=== PATIENT | female | born 1990 | race Caucasian/White ===

== ENCOUNTER 2019-07-23 08:33 | Emergency (ER) | payer SELFPAY ==
[~2019-07-23] VITALS: Ht 160.2 cm; Wt 95.8 kg
[~2019-07-23 08:33] MED LIST: ACHD5005 PO; CEFD300C3 PO; FAMO20TA5 PO; HYDR25CA92 PO; KETO-22 PO; LACT20SO2 PO; LD2JL30 EXT; NITR100C3 PO; ONDA-43 PO; POLY119P PO; PRED20TA PO; PROCTOSOL-HC TOP; SENN1TAB66 PO; TRAM50TA2 PO
[2019-07-23] MEDS ORDERED: LACTATED RINGERS 1,000 ML IV ONE (10:32)
[2019-07-23] MEDS ORDERED: FAMOTIDINE 20 MG (PEPCID) TABLET PO STA (10:32)
--- NOTE | 2019-07-23 10:42 | ED Abdominal Pain ---
General Chief Complaint: Abdominal/GI Problems Stated Complaint: VOMITING / ABD PAIN Nursing Triage Note: symptoms started yesterday am . stomach pain followed by nausea and vomitinng. weakness and chills Sepsis Screen: No Definite Risk Source of Information: Patient, Family Exam Limitations: No Limitations History of Present Illness Date Seen by Provider: Jul 23, 2019 Time Seen by Provider: 10:15 Initial Comments Patient present to ER by private conveyance with her significant other chief complaint that she's having some epigastric abdominal pain nausea and vomiting since yesterday. The day before she ate [employer] with her dad and he also has similar gastric symptoms. She had a bowel movement 2 days ago after eating [employer] which was normal, formed. She's not having any diarrhea. She's not having any fevers or chills. No history of abdominal surgeries or trauma. No significant medical history. She has not seen anybody for this yet. No history of pancreatitis, biliary colic. Allergies and Home Medications Allergies Coded Allergies: No Known Drug Allergies (Unverified , 07/19/10) Home Medications Cefdinir 300 Mg Capsule, 1 EACH PO BID Prescribed by: PATRICK ROSARIO on 12/03/141920 Famotidine 20 Mg Tablet, 1 EACH PO BID Prescribed by: PATRICK ROSARIO on 12/03/141920 Hydroxyzine Pamoate 25 Mg Capsule, 1 EA PO QID PRN for ANXIETY FOR ITCHING Prescribed by: PATRICK ROSARIO on 12/03/141921 Prednisone 20 Mg Tablet, 40 MG PO DAILY Prescribed by: PATRICK ROSARIO on 12/03/141920 Tramadol Hcl 50 Mg Tablet, 50 MG PO Q4H PRN for PAIN Prescribed by: PATRICK ROSARIO on 12/03/141920 Patient Home Medication List Home Medication List Reviewed: Yes Review of Systems Review of Systems Constitutional: No chills, No diaphoresis EENTM: No Blurred Vision, No Double Vision Respiratory: Denies Cough, Denies Shortness of Air Cardiovascular: Denies Chest Pain, Denies Lightheadedness Gastrointestinal: Abdominal Pain; Denies Constipated, Denies Diarrhea; Nausea, Poor Fluid Intake Genitourinary: Denies Burning, Denies Discharge Musculoskeletal: No back pain, No joint pain All Other Systems Reviewed Negative Unless Noted: Yes Past Nzdjuek-Vhvqhi-Rlgqxs Hx Patient Social History Alcohol Use: Denies Use Recreational Drug Use: No Smoking Status: Never a Smoker Recent Foreign Travel: No Contact w/Someone Who Travel: No Recent Infectious Disease Expo: No Past Medical History : No Reproductive Disorders: No Hemorrhoids Family Medical History No Pertinent Family Hx Physical Exam Vital Signs Vital Signs - First Documented 07/23/19 10:19 Temp 37.3 Pulse 97 Resp 20 B/P (MAP) 117/84 (95) Pulse Ox 99 O2 Delivery Room Air Capillary Refill : Less Than 3 Seconds Height/Weight/BMI Height: 5'3" Weight: 150lbs. oz. 68.552603ol; 37.00 BMI Method:Stated General Appearance: WD/WN, no apparent distress HEENT: PERRL/EOMI, normal ENT inspection, TMs normal; No pharynx normal (oropharynx mildly dry) Neck: full range of motion, normal inspection Respiratory: lungs clear, normal breath sounds, no respiratory distress, no accessory muscle use Cardiovascular: normal peripheral pulses, regular rate, rhythm Peripheral Pulses: 2+ Radial Pulses (R), 2+ Radial Pulses (L) Gastrointestinal: normal bowel sounds, soft, no organomegaly, tenderness (mild epigastric tenderness. Negative for Kelly sign, Rovsing sign or rebound tenderness over McBurney's point.) Extremities: normal range of motion, normal inspection, normal capillary refill Neurologic/Psychiatric: alert, normal mood/affect, oriented x 3 Skin: normal color, warm/dry Progress/Results/Core Measures Results/Orders Lab Results Laboratory Tests Test 07/23/19 10:39 07/23/19 10:40 Range/Units White Blood Count 7.8 4.3-11.0 10^3/uL Red Blood Count 5.31 4.35-5.85 10^6/uL Hemoglobin 13.8 11.5-16.0 G/DL Hematocrit 41 35-52 % Mean Corpuscular Volume 77 L 80-99 FL Mean Corpuscular Hemoglobin 26 25-34 PG Mean Corpuscular Hemoglobin Concent 34 32-36 G/DL Red Cell Distribution Width 13.8 10.0-14.5 % Platelet Count 232 130-400 10^3/uL Mean Platelet Volume 11.5 H 7.4-10.4 FL Neutrophils (%) (Auto) 77 H 42-75 % Lymphocytes (%) (Auto) 14 12-44 % Monocytes (%) (Auto) 9 0-12 % Eosinophils (%) (Auto) 1 0-10 % Basophils (%) (Auto) 0 0-10 % Neutrophils # (Auto) 6.0 1.8-7.8 X 10^3 Lymphocytes # (Auto) 1.1 1.0-4.0 X 10^3 Monocytes # (Auto) 0.7 0.0-1.0 X 10^3 Eosinophils # (Auto) 0.1 0.0-0.3 10^3/uL Basophils # (Auto) 0.0 0.0-0.1 10^3/uL Sodium Level 139 135-145 MMOL/L Potassium Level 3.8 3.6-5.0 MMOL/L Chloride Level 108 H 98-107 MMOL/L Carbon Dioxide Level 21 21-32 MMOL/L Anion Gap 10 5-14 MMOL/L Blood Urea Nitrogen 7 7-18 MG/DL Creatinine 0.73 0.60-1.30 MG/DL Estimat Glomerular Filtration Rate > 60 BUN/Creatinine Ratio 10 Glucose Level 86 70-105 MG/DL Calcium Level 8.7 8.5-10.1 MG/DL Corrected Calcium 8.5 8.5-10.1 MG/DL Total Bilirubin 0.4 0.1-1.0 MG/DL Aspartate Amino Transf (AST/SGOT) 18 5-34 U/L Alanine Aminotransferase (ALT/SGPT) 13 0-55 U/L Alkaline Phosphatase 84 40-136 U/L Total Protein 7.4 6.4-8.2 GM/DL Albumin 4.3 3.2-4.5 GM/DL Lipase 25 8-78 U/L Urine Color YELLOW Urine Clarity CLEAR Urine pH 6.5 5-9 Urine Specific [place]mond[place] 1.010 L 1.016-1.022 Urine Protein NEGATIVE NEGATIVE Urine Glucose (UA) NEGATIVE NEGATIVE Urine Ketones NEGATIVE NEGATIVE Urine Nitrite NEGATIVE NEGATIVE Urine Bilirubin NEGATIVE NEGATIVE Urine Urobilinogen 0.2 < = 1.0 MG/DL Urine Leukocyte Esterase TRACE NEGATIVE Urine RBC (Auto) TRACE-I NEGATIVE Urine RBC RARE /HPF Urine WBC RARE /HPF Urine Squamous Epithelial Cells 2-5 /HPF Urine Crystals NONE /LPF Urine Bacteria FEW H /HPF Urine Casts NONE /LPF Urine Mucus NEGATIVE /LPF Urine Culture Indicated NO My Orders Orders - HUSSAIN HAYES Ua Culture If Indicated (07/23/19 08:50) Urine Bedside (07/23/19 08:50) Ed Iv/Invasive Line Start (07/23/19 10:32) Lactated Ringers (Lr 1000 Ml Iv Solution (07/23/19 10:32) Ondansetron Injection (Zofran Injectio (07/23/19 10:45) Lidocaine 2% Viscous 15 Ml (Xylocaine Vi (07/23/19 10:45) Famotidine Tablet (Pepcid Tablet) (07/23/19 10:32) Antacid Suspension (Mylanta Suspension (07/23/19 10:45) Cbc With Automated Diff (07/23/19 10:32) Comprehensive Metabolic Panel (07/23/19 10:32) Lipase (07/23/19 10:32) Orthostatic Vital Signs (Adult (07/23/19 10:43) Medications Given in ED Current Medications Medications Dose Ordered Sig/Vishal Route Start Time Stop Time Status Last Admin Dose Admin Al Hydrox/Mg Hydrox/Simethicone 30 ml ONCE ONCE PO 07/23/19 10:45 07/23/19 10:46 DC 07/23/19 10:45 30 ML Lactated Ringer's 1,000 ml @ 0 mls/hr Q0M ONCE IV 07/23/19 10:32 07/23/19 10:34 DC 07/23/19 10:45 0 MLS/HR Lidocaine HCl 15 ml ONCE ONCE PO 07/23/19 10:45 07/23/19 10:46 DC 07/23/19 10:45 15 ML Ondansetron HCl 4 mg ONCE ONCE IVP 07/23/19 10:45 07/23/19 10:46 DC 07/23/19 10:45 4 MG Vital Signs/I&O 07/23/19 07/23/19 10:19 12:02 Temp 37.3 Pulse 97 116 108 118 Resp 20 B/P (MAP) 117/84 (95) 111/86 (94) 117/79 (92) 113/82 (92) Pulse Ox 99 O2 Delivery Room Air Blood Pressure Mean: 95 Progress Progress Note #1: Time: 10:41 Progress Note GI cocktail, Zofran. We'll give Toradol if her pain does not improve with GI cocktail. Suspect gastroenteritis likely viral. Food poisoning unlikely at this point. Presented today after she ate the food that her family member also experiences the same illness so viruses more likely. We'll give her a liter of lactated Ringer's and check some basic labs. Progress Note #2: Time: 12:42 Progress Note Patient has aseptic vital signs normal orthostatics and normal labs. Viral gastritis. Departure Impression Primary Impression: Viral gastroenteritis Disposition: HOME, SELF-CARE Condition: Stable Departure-Patient Inst. Decision time for Depature: 12:43 Referrals: NO,LOCAL PHYSICIAN (PCP/Family) Primary Care Physician Patient Instructions: Viral Gastroenteritis, Adult (DC) Add. Discharge Instructions: Drink lots of fluids. Sports drinks are encouraged. Zofran 1 tablet every 6 hours as needed for nausea or vomiting. Follow-up with your primary care doctor as needed if you're not seeing improvement by Thursday. All discharge instructions reviewed with patient and/or family. Voiced understanding. Scripts Ondansetron (Ondansetron Odt) 4 Mg Tab.rapdis 4 MG PO Q6H PRN for NAUSEA/VOMITING, #8 TAB 0 Refills Prov: HUSSAIN HAYES 07/23/19 Work/School Note: Work Release Form Date Seen in the Emergency Department: Jul 23, 2019 Return to Work: Jul 19, 2019 Restrictions: No Restrictions HUSSAIN HAYES Jul 23, 2019 10:42
[2019-07-23] MEDS ORDERED: ONDANSETRON 4 MG/2 ML (SDV) Z0FRAN IVP ONE (10:45)
[2019-07-23] MEDS ORDERED: LIDOCAINE 2% VISCOUS 15 ML UDC PO ONE (10:45)
[2019-07-23] MEDS ORDERED: ANTACID SUSP 30 ML UDC (MYLANTA) PO ONE (10:45)
[2019-07-23 10:46] LABS: BASOPHILS % (AUTO) 0 % (0-10); EOSINOPHILS # (AUTO) 0.1 10^3/uL (0.0-0.3); EOSINOPHILS % (AUTO) 1 % (0-10); HEMATOCRIT 41 % (35-52); HEMOGLOBIN 13.8 G/DL (11.5-16.0); LYMPHOCYTES # (AUTO) 1.1 X 10^3 (1.0-4.0); LYMPHOCYTES % (AUTO) 14 % (12-44); MEAN CORPUSCULAR HEMOGLOBIN 26 PG (25-34); MEAN CORPUSCULAR HGB CONC 34 G/DL (32-36); MEAN CORPUSCULAR VOLUME 77 FL (80-99); MEAN PLATELET VOLUME 11.5 FL (7.4-10.4); MONOCYTES # (AUTO) 0.7 X 10^3 (0.0-1.0); MONOCYTES % (AUTO) 9 % (0-12); NEUTROPHILS % (AUTO) 77 % (42-75); PLATELET COUNT 232 10^3/uL (130-400); RED CELL DISTRIBUTION WIDTH 13.8 % (10.0-14.5); WHITE BLOOD COUNT 7.8 10^3/uL (4.3-11.0)
[2019-07-23 10:54] LABS: BILIRUBIN,URINE NEGATIVE (NEGATIVE); CLARITY,URINE CLEAR; COLOR,URINE YELLOW; GLUCOSE, URINE (UA) NEGATIVE (NEGATIVE); KETONES,URINE NEGATIVE (NEGATIVE); LEUKOCYTE ESTERASE ,URINE TRACE (NEGATIVE); NITRITE,URINE NEGATIVE (NEGATIVE); PH,URINE 6.5 (5-9); PROTEIN,URINE NEGATIVE (NEGATIVE)
[2019-07-23 11:07] LABS: ALANINE AMINOTRANSFERASE 13 U/L (0-55); ALBUMIN 4.3 GM/DL (3.2-4.5); ALKALINE PHOSPHATASE 84 U/L (40-136); BILIRUBIN,TOTAL 0.4 MG/DL (0.1-1.0); BUN/CREATININE RATIO 10; CALCIUM 8.7 MG/DL (8.5-10.1); CARBON DIOXIDE 21 MMOL/L (21-32); CHLORIDE 108 MMOL/L (98-107); CREATININE SERUM 0.73 MG/DL (0.60-1.30); GFR ESTIMATED > 60; GLUCOSE 86 MG/DL (70-105); LIPASE 25 U/L (8-78); SODIUM 139 MMOL/L (135-145); TOTAL PROTEIN 7.4 GM/DL (6.4-8.2)
[2019-07-23 11:13] LABS: RBC,URINE RARE /HPF
[2019-07-23 11:14] LABS: BACTERIA,URINE FEW /HPF; WBC,URINE RARE /HPF
[2019-07-23 11:23] LABS: POTASSIUM 3.8 MMOL/L (3.6-5.0)
[2019-07-23 12:02] VITALS: BP_SYST 111; BP_SYST 113; BP_SYST 117; BP_DIAS 79; BP_DIAS 82; BP_DIAS 86
[2019-07-23] MEDS ORDERED: ONDA4TAB11 PO (12:46)
[2019-07-23 13:38] VITALS: BP 111/82
== END 2019-07-23 13:39 | disposition home or self-care (01) ==
LOC: EDUNIT# 08:33 → ER 08:34
DX: A08.4 Viral intestinal infection, unspecified (principal); Z79.52 Long term (current) use of systemic steroids
CPT/HCPCS: 36415; 80053; 81000; 83690; 84703; 85025; 96361; 96374

== ENCOUNTER → 2021-01-30 | Outpatient (REF) ==
[~2021-01-30] MED LIST changes: +ONDA4TAB11 PO
--- NOTE | 2021-01-30 10:48 | Diagnostic Imaging Report ---
INDICATION: Right ankle pain. COMPARISON: None. FINDINGS: Three views of the right ankle demonstrate no fracture or dislocation. The articular surfaces are normal. No foreign body. IMPRESSION: Negative right ankle. Dictated by: Dictated on workstation # [id number]
--- NOTE | 2021-01-30 10:50 | Diagnostic Imaging Report ---
INDICATION: Right foot pain. COMPARISON: None. FINDINGS: Three views of the right foot demonstrate no fracture or dislocation. The articular surfaces are normal. No foreign body is seen. IMPRESSION: Negative right foot. Dictated by: Dictated on workstation # [id number]
== END ==
LOC: OCC 10:13
PROVIDERS: ATTEND Nurse Practitioner Family
DX: M25.571 Pain in right ankle and joints of right foot (principal); M79.671 Pain in right foot
CPT/HCPCS: 73610; 73630

== ENCOUNTER → 2021-02-15 | Outpatient (REF) ==
--- NOTE | 2021-02-15 09:21 | Diagnostic Imaging Report ---
PROCEDURE: MRI right lower extremity without contrast. TECHNIQUE: Multiplanar, multisequence non contrast-enhanced MRI of the right lower extremity was accomplished. INDICATION: Trauma, crush injury right forefoot COMPARISON: Right foot radiographs of 01/30/2021 FINDINGS: Bones: No bone marrow edema within the metatarsals or phalanges that would indicate bone contusion or radiographically occult fracture. No marrow replacing process. Soft tissues: In the dorsal subcutaneous tissues, there is a T1 hyperintense and T2 hyperintense collection measuring 2.5 x 3.2 x 0.6 cm which is likely due to a mixture of contusion and hematoma from the crush injury. Lisfranc ligamentous complex is intact. No contusion within the intrinsic musculature of foot. The dorsal extensor tendons remain intact. No plantar fibromatosis. No intermetatarsal bursitis or Dunn's neuroma. IMPRESSION: 1. No fracture or bone contusion. 2. Subcutaneous contusion and hematoma in the dorsal aspect of the foot. Dictated by: Dictated on workstation # [id number]
== END ==
LOC: OCC 07:37
PROVIDERS: ATTEND Nurse Practitioner Family
DX: S90.31XA Contusion of right foot, initial encounter (principal); X58.XXXA Exposure to other specified factors, initial encounter

== ENCOUNTER 2021-03-01 14:45 | Outpatient (RCR) | payer OTHER | END 2021-03-07 09:50 | disposition home or self-care (01) | PROVIDERS: ATTEND Nurse Practitioner Family | DX: S90.01XD Contusion of right ankle, subsequent encounter (principal); S90.31XD Contusion of right foot, subsequent encounter; W22.8XXD Striking against or struck by other objects, subsequent encounter ==

== ENCOUNTER 2021-03-21 10:00 | Outpatient (RCR) | payer OTHER | END 2021-04-18 09:26 | disposition home or self-care (01) | PROVIDERS: ATTEND Podiatrist | DX: S90.31XA Contusion of right foot, initial encounter (principal); W19.XXXA Unspecified fall, initial encounter ==

== ENCOUNTER → 2021-03-29 | Outpatient (CLI) | payer OTHER | LOC: LABNPT 09:06 | PROVIDERS: ATTEND Podiatrist | DX: Z20.822 Contact with and (suspected) exposure to COVID-19 (principal) | CPT/HCPCS: 87635 ==

== ENCOUNTER 2021-06-13 10:00 | Outpatient (RCR) | payer OTHER | END 2021-06-19 14:42 | disposition home or self-care (01) | PROVIDERS: ATTEND Podiatrist | DX: S90.31XA Contusion of right foot, initial encounter (principal); X58.XXXA Exposure to other specified factors, initial encounter ==